=== PATIENT | male | born 1985 | race Native Hawaiian/Other Pacific Islander ===

== ENCOUNTER 2020-03-03 16:19 | Inpatient (IN) | payer BC, OTHER ==
[~2020-03-03] VITALS: Ht 175.3 cm; Wt 92.3 kg
[2020-03-03 17:33] VITALS: BP 120/77; TEMP 98.1; Ht 175.3 cm; Wt 92.3 kg
[2020-03-03 18:43] LABS: PLATELET COUNT 223 K/uL (142-355)
[2020-03-03 20:00] VITALS: BP 150/89; TEMP 97.8
[2020-03-03 20:02] LABS: POTASSIUM 3.2 mmol/L (3.6-5.2)
[2020-03-04] VITALS: BP 121/72; TEMP 98.3
[2020-03-04 03:55] VITALS: BP 116/72; TEMP 99
[2020-03-04 08:00] VITALS: BP 113/66; TEMP 98.2
[2020-03-04 12:00] VITALS: BP 98/51; TEMP 98
[2020-03-04 12:53] LABS: PLATELET COUNT 227 K/uL (142-355)
[2020-03-04 13:35] LABS: POTASSIUM 3.4 mmol/L (3.6-5.2)
[2020-03-04 16:00] VITALS: BP 119/74; TEMP 97.7
[2020-03-04 20:00] VITALS: BP 121/69; TEMP 98.4
[2020-03-05 00:02] VITALS: BP 124/75; TEMP 97.7
[2020-03-05 03:37] VITALS: BP 120/50; TEMP 97.8
[2020-03-05 05:28] LABS: PLATELET COUNT 220 K/uL (142-355)
[2020-03-05 08:00] VITALS: BP 124/76; TEMP 97.7
[2020-03-05 11:05] LABS: POTASSIUM 3.9 mmol/L (3.6-5.2)
[2020-03-05 12:00] VITALS: BP 118/74; TEMP 98.1
[2020-03-05 16:00] VITALS: BP 121/70; TEMP 98.3
== END 2020-03-05 17:17 | disposition home or self-care (01) | DRG 177 ==
LOC: MED/SURG 16:19
PROVIDERS: ADMIT Family Medicine
DX: U07.1 COVID-19 (principal); J18.8 Other pneumonia, unspecified organism; E46 Unspecified protein-calorie malnutrition; R63.0 Anorexia; E86.0 Dehydration; R09.02 Hypoxemia
CPT/HCPCS: 36415; 80053; 82728; 83735; 84100; 85027; 85379; 86140; 87040; 93005; 94667; 94668; 94760; 96365; 96366; 96367; 96372; 96375; J0456; J0696; J1100; J1650; J2405; J2765

== ENCOUNTER 2020-03-07 15:40 | Outpatient (CLI) | payer BC, OTHER | END 2020-03-07 22:06 | disposition home or self-care (01) | LOC: RAD 15:40 | DX: U07.1 COVID-19 (principal) ==